=== PATIENT | male | born 1960 | race African-American/Black ===

== ENCOUNTER 2018-05-04 17:05 | Inpatient (IN) | payer OTHER ==
[~2018-05-04] VITALS: Ht 167.6 cm; Wt 101.1 kg
--- NOTE | ~2018-05-04 | 2DMMODE ---
[facility] [address] [employer] (Inspect Manager) [place] [address] 2 D/M-MODE ECHOCARDIOGRAM Name: RON CALI Room #: 208-P ADM IN .R.#: [id number] Admission: 05/04/18 Attend Phys: Shyam Fuller Discharge: Date of : 56 Date of Service: 05/05/18 1352 Report #: [id number] THIS REPORT FOR: //name// APPROVED REPORT Study performed: 05/05/2018 12:57:12 EXAM: Comprehensive 2D, Doppler, and color-flow Echocardiogram Patient Location: Bedside Room #: 208 Status: routine BSA: 1.91 HR: 112 bpm BP: 100/50 mmHg Rhythm: NSR/PACs Other Information Study Quality: Adequate Indications Atrial Fibrillation DM/HTN 2D Dimensions RVDd: 30.64 mm IVSd: 12.24 (7-11mm) LVOT Diam: 23.49 (18-24mm) LVDd: 43.76 mm PWd: 11.72 (7-11mm) Ascending Ao: 30.26 (22-36mm) LVDs: 25.27 (25-40mm) Aortic Root: 30.02 mm IVC: 24.00 mm Volumes Left Atrial Volume (Systole) Single Plane 4CH: 28.67 mL Single Plane 2CH: 35.88 mL LA ESV Index: 18.00 mL/m2 Aortic Valve AoV Peak Garfield.: 1.32 m/s AO Peak Gr.: 7.02 mmHg LVOT Max P.60 mmHg LVOT Max V: 1.28 m/s EDGAR Vmax: 4.20 cm2 Mitral Valve E/A Ratio: 1.3 MV Decel. Time: 180.45 ms [facility] [employer] [place] [address] 2 D/M-MODE ECHOCARDIOGRAM Name: RON CALI Room #: 208-P [facility] IN [facility].#: [id number] Admission: 05/04/18 Attend Phys: Shyam Fuller Discharge: Date of : 56 Date of Service: 05/05/18 1352 Report #: [id number] MV E Max Garfield.: 1.20 m/s MV A Garfield.: 0.93 m/s MV PHT: 52.33 ms IVRT: 62.28 ms Pulmonary Valve PV Peak Garfield.: 1.08 m/s PV Peak Gr.: 4.65 mmHg Tricuspid Valve TR Peak Garfield.: 2.47 m/s RAP Estimate: 15.00 mmHg TR Peak Gr.: 24.40 mmHg PA Pressure: 39.00 mmHg Left Ventricle The left ventricle is normal size. There is normal LV segmental wall motion. Mild concentric left ventricular hypertrophy. Left ventricular systolic function is normal. LVEF is 60-65%. The left ventricular diastolic function is normal. Right Ventricle The right ventricle is normal size. The right ventricular systolic function is normal. Atria The left atrium size is normal. The right atrium size is normal. Aortic Valve The aortic valve is normal in structure. No aortic regurgitation is present. There is no aortic valvular stenosis. Mitral Valve Minimal mitral annular calcification. Trace mitral regurgitation. No evidence of mitral valve stenosis. Tricuspid Valve The tricuspid valve is normal in structure. Trace tricuspid regurgitation. Estimated PAP is 35-40mmHg. Pulmonic Valve The pulmonary valve is normal in structure. Trace pulmonic regurgitation. Great Vessels The aortic root is normal in size. The ascending aorta is normal in size. IVC is dilated and collapses <50% with [facility] [address] [place] [address] 2 D/M-MODE ECHOCARDIOGRAM Name: RON CALI Papo Room #: 208-P [facility] IN .R.#: [id number] Admission: 05/04/18 Attend Phys: Shyam Fuller Discharge: Date of : 56 Date of Service: 05/05/18 1352 Report #: [id number] inspiration. Pericardium There is no pericardial effusion. <Conclusion> Left ventricular systolic function is normal. There is normal LV segmental wall motion. LVEF is 60-65%. The aortic valve is normal in structure. No aortic regurgitation or stenosis Minimal mitral annular calcification. Trace mitral regurgitation. Trace tricuspid regurgitation. Estimated pulmonary artery pressure of 35-40mmHg. There is no pericardial effusion. <ELECTRONICALLY SIGNED> By: Morris Sharif MD, FAC 05/05/18 135 51 51 Morris Sharif MD, FAC /INF
--- NOTE | ~2018-05-04 | PATH ---
[facility] [address] [place] [address] PATHOLOGY RPT PROCEDURE Name: VERONIKA FLEMINGBEATRIS Barros Room #: 213-P DIS IN M.R.#: [id number] Admission: 05/04/18 Date of : 56 Discharge: 05/11/18 Report #: [id number] Path Case #: [id number] [facility] Accession Number: [id number] . 01 Material submitted: . BX OF THICKENED MUCOSA IN RECTUM R/O PROCTITIS . 01 Clinician provided ICD-10: Z85.46 . 01 Clinical history: . Pre-op diagnosis: History of prostate cancer, radiation therapy Postop diagnosis: Thickening of rectum mucosa R/O proctitis . 02 Diagnosis: Large intestinal mucosa, thickened mucosa in rectum rule out proctitis, endoscopic biopsy: - Reactive hyperplastic changes. - Negative for cryptitis or active colitis. - Negative for dysplasia or malignancy. . (IUV:at;05/13/2018) QTA/05/13/2018 . 02 Electronically signed: . Sweta Negrete MD, Pathologist NPI- [id number] . 01 Gross description: . Received in formalin labeled "Deep Fleming, BX of thickened mucosa in rectum, R/O proctitis," are eight segments of padilla soft tissue measuring 0.8 x 0.7 x 0.2 cm in aggregate dimensions and ranging from 0.1 to 0.4 cm in maximum dimension. The specimen is submitted entirely in cassette A1. The smallest fragment may not survive processing. ([facility]; 05/12/2018) XDC/XDC . 02 Pathologist provided ICD-10: K62.9, Z85.46 . 02 CPT . 857603 Specimen Comment: A courtesy copy of this report has been sent to Specimen Comment: [phone], . Specimen Comment: Report sent to / DR MOLINA Performed at: 01 [place] [address] PATHOLOGY RPT PROCEDURE Name: DEEP FLEMING Room #: 213-P DIS IN M.R.#: [id number] Admission: 05/04/18 Date of : 56 Discharge: 05/11/18 Report #: [id number] Path Case #: [id number] [address] [facility] [address], [place], [place] [id number] MD Wallace Hoover MD Phone: [phone] Performed at: [address] [id number] MD Sweta Negrete MD Phone: [phone]
--- NOTE | ~2018-05-04 | HC ---
[facility] [place] [address] CONSULTATION Name: RON CALI Room #: 213-P [facility] IN ..#: [id number] Admission: 05/04/18 Attend Phys: Shyam Baron Discharge: Date of : 56 Report #: [id number] THIS REPORT FOR: //name// CC: NEAL physician/PCP Shyam Martel DATE OF SERVICE: 05/05/2018 HISTORY OF PRESENT ILLNESS: This is a 57-year-old male patient who was evaluated by me for the possibility of stroke. The patient does not believe that he had any stroke-like symptoms. I talked to the nurses looking after this patient. I talked to the patient's mother. It looks like the patient is admitted with constitutional symptoms. He had blood in the urine. He had lost weight. He had back pain and he was admitted with urosepsis. His blood sugar has been running in the 400s-500s. At one time, he was noticed to be ataxic. It was more on the left side as compared to the right side. He has been stable. REVIEW OF SYSTEMS: Extensive in this patient. Relevant review of systems indicate that this patient has diabetes. He has loss of appetite, loss of weight. He has urosepsis. He has a history of prostatic carcinoma. He has a history of hypertension. He also has a history of depression. This was his relevant 14-point review of systems. PAST MEDICAL HISTORY: Positive for prostatic carcinoma. FAMILY HISTORY: Negative for any early age stroke. SOCIAL HISTORY: He has a supportive family. I talked to the mother and we will talk to the patient's . PHYSICAL EXAMINATION: Indicate he is alert, responsive, oriented, able to follow simple and complex commands. His speech, concentration, fund of knowledge and memory is at his baseline. Cranial nerve examination 2-12 looks unremarkable. He does appear to be slightly weak in the left side as compared to the right side. His position sense is intact on both sides. He does [id number]-[id number]-[id number] reasonably well on both sides. There is no meningeal sign. There is no carotid bruit. Presently, his heart rate is running into 160s. He is a very well-developed individual who does not have any dysmorphic features of eyes, ears and face. His vision and hearing looks adequate. His blood pressure is 90/44, respiration is 20, pulse is 160. He did have a CT scan of the head, which does not appear to be showing any acute abnormality. IMPRESSION: This patient may have had encephalopathy secondary to multiple systemic problems. Possibility of cerebellar stroke cannot be excluded. He appears to be stable from neurological perspective, but is having a lot of [address] [address] CONSULTATION Name: JOSE FRANCISCO CALIANTONINO Barros Room #: 213-P ADM IN M.R.#: [id number] Admission: 05/04/18 Attend Phys: Shyam Baron Discharge: Date of : 56 Report #: [id number] systemic problems including high pulse rate. RECOMMENDATIONS: 1. MRI is scheduled and we will see what it shows. 2. I talked to the nurses and told them that they should not take the patient for MRI till he stabilizes and till Cardiology feel comfortable with that. If there is a need for it, I will repeat the CT. Presently, I do not think risk/benefit justify even that because he had a CT yesterday and it was unremarkable. We will look at his MRI when the patient stabilizes, but the patient should go for MRI only if he is stable and when cleared by Cardiology. Thank you very much for this referral and we will follow this patient along with you. <ELECTRONICALLY SIGNED> By: Bert Lund MD 05/11/18 0947 1614 2233 Bert Lund MD /nt
--- NOTE | ~2018-05-04 | EKG ---
[address] [address] ELECTROCARDIOGRAM REPORT Name: RON CALI Room #: 208-P ADM IN M.R.#: [id number] Admission: 05/04/18 Attend Phys: Shyam Baron Discharge: Date of : 56 Report #: [id number] THIS REPORT FOR: //name// [facility] Test Date: 2018-05-05 Test Time: 06:15:15 Pat Name: RON CALI Department: Room: 208 P Gender: M [employer] Superintendent: KRISTINA : 1960 Requested By: Shyam Baron Order Number: [id number] MD: Philip Agee Measurements Intervals Victor Rate: 170 P: UT: QRS: -36 QRSD: 106 T: -17 QT: 280 QTc: 471 Interpretive Statements Incomplete analysis due to missing data in precordial lead(s) Atrial flutter Left axis deviation Low voltage, extremity leads Nonspecific T abnormalities, diffuse leads Baseline wander in lead(s) V6 Missing lead(s): V5 No previous ECG available for comparison Electronically Signed On 05-05-2018 9:56:33 CDT by Philip Agee [email or web address] <ELECTRONICALLY SIGNED> By: Philip Agee MD 05/05/18 0956 4 4 Philip Agee MD /EPI
--- NOTE | ~2018-05-04 | HC ---
[facility] [place] [address] CONSULTATION Name: RON CALI Room #: 239-P [facility] IN .R.#: [id number] Admission: 05/04/18 Attend Phys: Shyam Baron Discharge: Date of : 56 Report #: [id number] THIS REPORT FOR: //name// CC: NELA physician/PCP Shyam Martel DATE OF SERVICE: 05/05/2018 REASON FOR CONSULTATION: Atrial flutter. HISTORY OF PRESENT ILLNESS: The patient is a 57-year-old gentleman with history of prostate cancer with prior radiation therapy, hypertension and diabetes. He now presents with a 2-week history of hematuria. He has had fevers and chills. He was admitted with sepsis syndrome last night. In the middle of the night, he developed atrial flutter with a fast ventricular response. This converted on its own without specific therapy. He denies palpitations. He denies chest heaviness or pressure. No history of near syncope or syncope. There is no prior history of atrial dysrhythmias, myocardial infarction or heart failure. MEDICATIONS: Include simvastatin 20 mg daily, Paxil 10 mg daily, losartan 25 mg daily. PAST MEDICAL HISTORY: Medical records have been reviewed and include a history of prostate cancer, diabetes and hypertension. SOCIAL HISTORY: He works at an [employer]. He is a nonsmoker, nondrinker. FAMILY HISTORY: Unremarkable for premature coronary artery disease. REVIEW OF SYSTEMS: All systems negative except as that noted above. PHYSICAL EXAMINATION: GENERAL: A pleasant gentleman, in no distress. VITAL SIGNS: Blood pressure is 100/50, heart rate of 110 and irregular. He is afebrile, 101.7 degrees, 5 feet 6 inches tall, 179 pounds. HEENT: There are neither xanthelasma, subcutaneous xanthomata, oral mucosal or digital cyanosis or kyphoscoliosis present. CHEST: Clear to auscultation and percussion. CARDIOVASCULAR: Regular rate and rhythm with normal S1, S2. ABDOMEN: Soft and nontender. EXTREMITIES: Without cyanosis, clubbing or edema. Radial pulses are 2+. NEUROLOGIC: He is alert with a nonfocal exam. LABORATORY DATA: Sodium 131, potassium 4.2, creatinine 1.3, glucose 420. [address] [address] CONSULTATION Name: RON CALI Room #: 239-P [facility] IN M.R.#: [id number] Admission: 05/04/18 Attend Phys: Shyam Baron Discharge: Date of : 56 Report #: [id number] Troponin 0. White count 13.8, hemoglobin 12, hematocrit 37, platelet count 232. CT of the abdomen demonstrates a large prostate, bladder wall thickening. EKG, arial flutter with 2:1 AV conduction. IMPRESSION: 1. Sepsis. 2. Paroxysmal atrial flutter. 3. Hematuria; history of prostate cancer with prior radiation. 4. Hypertension. 5. Diabetes. 6. Hypercoagulable. RECOMMENDATIONS: 1. Low dose Cardizem. 2. Echocardiogram with Doppler. 3. Despite an elevated CHADS score, anticoagulant therapy remains contraindicated. 4. Consider anticoagulant therapy for recurrent atrial dysrhythmias. This atrial dysrhythmia has been asymptomatic. <ELECTRONICALLY SIGNED> By: Morris Sharif MD, FACC 05/06/18 0826 0903 0044 Morris Sharif MD, FACC /nt
--- NOTE | ~2018-05-04 | HC ---
[facility] [place] [address] CONSULTATION Name: RON CALI Room #: 239-P [facility] IN ..#: [id number] Admission: 05/04/18 Attend Phys: Shyam Baron Discharge: Date of : 56 Report #: [id number] THIS REPORT FOR: //name// CC: FAM physician/PCP Shyam Martel DATE OF SERVICE: 05/06/2018 ATTENDING PHYSICIAN: Shyam Baron MD. REASON FOR CONSULTATION: Bacteremia. HISTORY OF PRESENT ILLNESS: The patient is a 57-year-old man, admitted through the Emergency Room with history of hematuria, found to have abnormal urinalysis compatible with acute urinary tract infection. The patient is started on broad-spectrum antibiotic coverage consisted of meropenem. Blood cultures report showing Streptococcus species and vancomycin added. The patient mainly complaining of feeling extremely weak, currently not experiencing any difficulty in urination, has no Olguin catheter. He relates having had prostate cancer for which he received radiation therapy. The patient also relates having had fever up to 102 degrees Fahrenheit and weight loss of about 25 pounds and rectal pain and diarrhea. PAST MEDICAL HISTORY: Hypertension. Diabetes mellitus type 2. Prostate cancer for which he received radiation therapy. SOCIAL HISTORY: See H and P, old records. FAMILY HISTORY: See H and P, old records. REVIEW OF SYSTEMS: As above and see H and P. PHYSICAL EXAMINATION: GENERAL: A well-developed, chronically ill-appearing man. VITAL SIGNS: Temperature 101.7 on 05/05/2018. Today's temperature is 99.3, pulse 86, respirations 22, BP 100/65. Height is 5 feet 6 inches, weight 179-196.7 pounds. I suspect different scales were used here. HEENMT: Head normocephalic, atraumatic. Pupils reactive. Mouth: Good oral hygiene, dentition. NECK: Supple, no thyromegaly. LUNGS: Clear to auscultation. HEART: S1, S2. No gallops. ABDOMEN: Soft, no masses or megaly. GENITALIA AND RECTAL: Deferred. EXTREMITIES: No clubbing, cyanosis. There is some swelling of the left hand [facility] [address] [place] [address] CONSULTATION Name: RON CALI Room #: 239-P ADM IN [facility].#: [id number] Admission: 05/04/18 Attend Phys: Shyam Baron Discharge: Date of : 56 Report #: [id number] and left forearm. NEUROLOGIC: Grossly within normal limits. LABORATORY DATA: Sodium 132, potassium 4, BUN 22, creatinine 1, glucose 277, phosphorus 1.8 mg/dL, albumin 1.3 g/dL. On admission, lactic acid is 2.3 millimoles per liter, normalizes thereafter. Protime 14.9 seconds. Fibrinogen 445.8 mg/dL. WBC 15,200, hemoglobin 10.4 g/dL, platelets 163,000. The white blood cell count differential revealed 14% bands. The urinalysis revealed glycosuria, 2+ ketones, 3+ blood. The microscopic exam revealed pyuria, microscopic hematuria as well as bacteriuria. ABGs revealed pH 7.44, pCO2 25, pO2 76, bicarbonate 17.2. Lactate normal. These set of gases is on room air. MICROBIOLOGY DATA: Two out of two blood cultures obtained on 05/04/2018 revealed gram-positive cocci compatible with Streptococcus species. The urine culture is pending. RADIOLOGY EVALUATION: Chest x-ray revealed minor basilar atelectasis, infiltrate and reposition of PICC line now in good position. X-ray of the hand revealed no acute bony abnormalities, soft tissue swelling, question trauma infection. CT scan of the head revealed no abnormality. CT scan of abdomen and pelvis revealed findings compatible with prostate cancer and marked prostate prominence, bladder wall thickening, possibly secondary to outlet obstruction and stranding of fat adjacent to the rectum and distal colon could represent proctitis or colitis. MEDICATIONS: The patient is currently on treatment with vancomycin 1250 mg IV every 12 hours. This was entered today, meropenem 1 gram IV every 8 hours. He is also on paroxetine, diltiazem, amiodarone, tamsulosin, insulin lispro per sliding scale, diltiazem drip, p.r.n. glucose and glucagon, regular insulin per sliding scale, pressors per protocol. ASSESSMENT: 1. Acute urinary tract infection, possible prostatitis and presence of bladder cancer with evidence of bacteremia with Streptococcus species entertained Enterococcus faecalis bacteremia. 2. Sepsis, improving. 3. Hypertension. 4. Diabetes mellitus. 5. Protein calorie malnutrition. SUGGESTIONS: Recommend continue treatment with vancomycin at current dose, monitor vancomycin trough to be maintained between 10 and 20 mcg/mL. Possibly discontinue meropenem shortly. [facility] [address] [place] [address] CONSULTATION Name: RON CALI Room #: 239-P ADM IN M.R.#: [id number] Admission: 05/04/18 Attend Phys: Shyam Baron Discharge: Date of : 56 Report #: [id number] Baron, thank you for requesting my suggestions. <ELECTRONICALLY SIGNED> By: Darrius Agee MD 05/07/18 0922 0914 193 Darrius Agee MD /nt
--- NOTE | ~2018-05-04 | EEG ---
[facility] [place] [address] ELECTROENCEPHALOGRAM Name: RON CALI Room #: 213-P ADM IN M.R.#: [id number] Admission: 05/04/18 Attend Phys: Shyam Landis Discharge: Date of : 56 Report #: [id number] THIS REPORT FOR: //name// CC: NEAL physician/PCP Shyam Sainiew Delonte DATE OF SERVICE: 05/06/2018 This patient is being evaluated for altered mental status. EEG was done by placing the electrode by standard 10/20 system of electrode placement. Both referential and sequential montages were used for recording. Background activity in this patient's EEG is about 9-10 Hz and 30 microvolt. This is a symmetrical activity. Photic stimulation was unremarkable. The patient went to sleep that is associated with bilaterally symmetrical sleep spindle and vertex sharp waves. Throughout the record, no active epileptiform activity was noticed. IMPRESSION: This electroencephalogram is unremarkable. It is intermixed with some theta range slowing. That is a nonspecific abnormality, which can occur with encephalopathy, effect of psychotropic medication, drowsiness, etc. Otherwise, the EEG was unremarkable. <ELECTRONICALLY SIGNED> By: Bert Lund MD 05/11/18 0948 1841 1849 Bert Lund MD /nt
--- NOTE | ~2018-05-04 | P ---
[facility] [place] [address] PROCEDURE REPORT Name: RON CALI Room #: 213-P [facility] IN M.R.#: [id number] Admission: 05/04/18 Attend Phys: Shyam Baron Discharge: 05/11/18 Date of : 56 Report #: [id number] THIS REPORT FOR: //name// CC: NEAL physician/PCP Shyam Martel BRIEF HISTORY: The patient is a 57-year-old male with a history of prostate cancer and previous radiation therapy. Recent CT showed thickening of the rectum and sigmoid colon, mass exclusion could not be excluded. PREOPERATIVE DIAGNOSES: Abnormal CT rectum and sigmoid. POSTOPERATIVE DIAGNOSIS: Thickened mucosa, rectum. MEDICATIONS: Deep sedation with propofol per anesthesia. SPECIMEN: Biopsies of thickened rectum. ESTIMATED BLOOD LOSS: 3 mL. PROCEDURE: Flexible sigmoidoscopy to descending colon with biopsy. FINDINGS: Prior to propofol sedation, procedure of flexible sigmoidoscopy was discussed with the patient as well as potential risks and its complications. He indicates he understands and desire that we proceed. DESCRIPTION OF PROCEDURE: With the patient in left lateral decubitus position, digital examination was completed and a hard indurated prostate was palpable. No mass lesions were noted. Subsequently, the Olympus video colonoscope was introduced in the rectum, advanced under direct vision to the descending colon. This was about 50 cm. At that point, the scope was slowly withdrawn and careful circumferential views obtained. As we withdrew the scope, the prep was somewhat limited. There were pieces of solid stool around, as well as we could see the mucosa, was within normal limits, normal vascular pattern, normal light reflex. No mucosal abnormalities were noted until the distal rectum was reached at which point there was moderate thickening of some of the folds in the rectum. No blood was seen. No ulcerations were seen. I was unable to retroflex the scope in the rectum. Multiple biopsies were obtained. Scope was withdrawn and the patient tolerated the procedure well. DISPOSITION: The patient with prostate cancer and abnormal thickening of colon on CT and old thickening of rectum on CT. We will follow up on biopsies [address] [address] PROCEDURE REPORT Name: RON CALI Room #: 213-P DIS IN M.R.#: [id number] Admission: 05/04/18 Attend Phys: Shyam Baron Discharge: 05/11/18 Date of : 56 Report #: [id number] obtained today. Changes may be result of radiation therapy. No neoplastic disease was seen. <ELECTRONICALLY SIGNED> By: Darryl Tejeda MD 05/12/18 1158 1243 0015 Darryl Tejeda MD /nt
--- NOTE | ~2018-05-04 | HC ---
[facility] [place] [address] CONSULTATION Name: RON CALI Room #: 213-P [facility] IN M.R.#: [id number] Admission: 05/04/18 Attend Phys: Shyam Baron Discharge: Date of : 56 Report #: [id number] THIS REPORT FOR: //name// CC: NEAL physician/PCP Shyam Martel DATE OF SERVICE: 05/05/2018 Pulmonary Consultation REFERRAL PHYSICIAN: Dr. Smith. REASON FOR REFERRAL: Sepsis. HISTORY OF PRESENT ILLNESS: The patient is a 57-year-old -[place] male, who presents to the emergency room on 05/04 with intermittent complaints of hematuria for the past 2 weeks. He complains of weakness, poor appetite, febrile illness, weight loss of approximately 25 pounds for the last couple of months, rectal pain, and diarrhea for the past 2 weeks. He complains of back pain. He is felt to have urinary tract infection along with sepsis. The day following admission, the patient started to develop tachycardia, borderline hypotension. He was transferred to ICU. A pulmonary critical care consultation was requested. Currently, the patient is awake, denies any dyspnea, chest pain. He appears mildly distressed, mildly tachypneic. 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 PAST SURGICAL HISTORY: Unremarkable. ALLERGIES: None to medications. HOME MEDICATIONS: List includes indomethacin, Zocor, Paxil, Cozaar, vitamin C, multivitamins. FAMILY HISTORY: Noncontributory. SOCIAL HISTORY: The patient is a lifetime nonsmoker. Denies alcohol use. REVIEW OF SYSTEMS: As mentioned above, otherwise 10-point system is negative. PHYSICAL EXAMINATION: [facility] [address] [place] [address] CONSULTATION Name: JOSE [facility] CALIANTONINO Barros Room #: 213-P [facility] [place] IN M.R.#: [id number] Admission: 05/04/18 Attend Phys: Shyam Baron Discharge: Date of : 56 Report #: [id number] GENERAL: He is awake, alert, in mild distress. Also appears mildly dyspneic. VITAL SIGNS: Temperature is 102 degrees Fahrenheit, pulse is 149, respiratory rate is 30, saturation is 96%, blood pressure 120/64 mmHg and had been as low as 80 mmHg systolic. HEENT: Normocephalic, atraumatic. NECK: Supple, without lymphadenopathy or thyromegaly. CHEST: Breath sounds are fair due to poor effort. No obvious rales or wheezes. CARDIOVASCULAR: Normal S1, S2. There are no murmurs or gallop. There is no JVD. There is no carotid bruit. Pulses are 2+/4+ bilaterally. ABDOMEN: Soft, mildly tender, no masses felt. No rebound tenderness. GENITOURINARY: Deferred. RECTAL: Deferred. EXTREMITIES: There is no edema, cyanosis or clubbing. DATA: CT abdomen and pelvis showed marked prostate prominence, bladder wall thickening, secondary to possible outlet obstruction, fatty liver, pancreatic calcifications with chronic pancreatitis. UA was notable for moderate bacteria. CT head was unremarkable. Echocardiogram was grossly unremarkable. Procalcitonin level is 11.6. PSA 0.4. Electrolytes: Sodium 132, potassium 3.4, chloride 104, CO2 17, BUN is 22, creatinine is 1.0. WBC 95690, hemoglobin 10.4, and platelets are normal. There is significant bandemia noted. Arterial blood gas revealed pH 7.44, pCO2 25, pO2 76 on room air. Blood culture was positive for Gram-positive cocci. ASSESSMENT: 1. Severe sepsis with hypotension, tachycardia. 2. Urinary tract infection. 3. Gram-positive bacteremia. 4. Bladder wall thickening as per CT abdomen. 5. Atrial fibrillation with rapid ventricular response. 6. Hyponatremia, hyperkalemia. 7. Hypertension. 8. Diabetes mellitus type 2. 9. History of prostate cancer and enlarged prostate as mentioned above. 10. Encephalopathy, likely due to toxic and metabolic. RECOMMENDATION: Agree with sepsis protocol, broad spectrum antibiotics, maintain mean systolic arterial pressure around 60 and maintain adequate urine output, correct electrolyte abnormalities. DVT and GI prophylaxis is recommended. We will continue to monitor closely with you in the ICU. <ELECTRONICALLY SIGNED> By: He Hooker MD 05/07/181932 [id number] He Hooker MD /nt
--- NOTE | ~2018-05-04 | EKG ---
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
--- NOTE | ~2018-05-04 | EKG ---
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1960 Requested By: Shyam Baron Order Number: [id number] MD: Philip Agee Measurements Intervals [place] Rate: 99 P: 68 ID: [id number] QRS: 17 QRSD: 86 T: 56 QT: 365 QTc: 469 Interpretive Statements Sinus rhythm Supraventricular bigeminy Low voltage, extremity leads RSR' in V1 or V2, probably normal variant Compared to ECG 05/05/2018 06:15:15 Atrial premature complex(es) now present RSR' in V1 or V2 now present Atrial flutter no longer present Left-axis deviation no longer present T-wave abnormality no longer present Electronically Signed On 05-06-2018 7:20:26 CDT by Philip Agee [email or web address] <ELECTRONICALLY SIGNED> By: Philip Agee MD 05/06/18719 6 6 Philip Agee MD /EPI
[2018-05-04 17:21] VITALS: BP 108/52
[2018-05-04] MEDS ORDERED: INDOMETHACIN 5050 M1 PO (19:24)
[2018-05-04] MEDS ORDERED: PAXIL10 MG PO (19:25)
[2018-05-04] MEDS ORDERED: ZOCOR20 MG PO (19:25)
[2018-05-04] MEDS ORDERED: COZAAR 25 MG TA25 M1 PO (19:26)
[2018-05-04] MEDS ORDERED: VITAMINC500 PO (19:27)
[2018-05-04] MEDS ORDERED: CINNAMON500 MG PO (19:27)
[2018-05-04] MEDS ORDERED: CENTRUM SILVER1 EAC4 PO (19:28)
[2018-05-04 20:26] LABS: URINE BLOOD 3+ (Negative); URINE CLARITY CLEAR; URINE COLOR YELLOW; URINE GLUCOSE-RANDOM* 3+ (Negative); URINE KETONES 2+ (Negative); URINE NITRITE-REFLEX NEGATIVE (Negative); URINE PROTEIN (DIPSTICK) NEGATIVE (Negative)
[2018-05-04 20:28] LABS: URINE LEUKOCYTES-REFLEX 1+ (Negative)
[2018-05-04 20:29] LABS: ICTOTEST (BILI CONFIRMATORY) Negative (Negative); URINE BILIRUBIN NEGATIVE (Negative)
[2018-05-04 20:36] LABS: CASTS None Seen /LPF (None Seen); CRYSTALS None Seen /LPF (None Seen); MUCUS 0-3 Light strn/LPF (None Seen); SQUAMOUS 0-3 Few /LPF (0-3); URINE RBC 3-10 Few /HPF (0-2); URINE WBC-REFLEX >25 Many /HPF (0-5)
[2018-05-04 20:37] LABS: WBC CLUMPS Rare (None Seen)
[2018-05-04 21:17] LABS: HEMATOCRIT 39.8 % (42.0-52.0); HEMOGLOBIN 12.9 gm/dL (14.0-18.0); MCH 29.8 pg (26.0-34.0); MCHC 32.3 g/dL (28.0-37.0); MCV 92.5 fL (80.0-100.0); PLATELET COUNT 237 thou/uL (150-400); RBC 4.31 mil/uL (4.50-6.00); RDW 15.1 % (10.5-14.5); WBC 18.8 thou/uL (4.0-11.0)
[2018-05-04 21:26] LABS: CALCIUM 9.2 mg/dL (8.5-10.1); CREATININE 1.3 mg/dL (0.7-1.3)
[2018-05-04 21:31] LABS: POTASSIUM 6.2 mmol/L (3.5-5.1)
[2018-05-04 21:41] LABS: ANISOCYTOSIS 1+
[2018-05-04 22:17] LABS: BE(vivo) -9.7 mmol/L (-2 to +3); PCO2 VENOUS 25.3 mmHg (41.0-51.0); PO2 VENOUS 67.7 mmHg (35.0-45.0)
[2018-05-04 23:40] VITALS: BP 93/48
[2018-05-05] VITALS (16 sets, daily range): BP systolic 64–112; BP diastolic 43–62
[2018-05-05 04:47] LABS: CALCIUM 8.8 mg/dL (8.5-10.1); CREATININE 1.3 mg/dL (0.7-1.3); HEMATOCRIT 37.1 % (42.0-52.0); HEMOGLOBIN 12.3 gm/dL (14.0-18.0); MCH 30.2 pg (26.0-34.0); MCV 91.5 fL (80.0-100.0); RBC 4.06 mil/uL (4.50-6.00); RDW 14.9 % (10.5-14.5); WBC 13.8 thou/uL (4.0-11.0)
[2018-05-05 04:48] LABS: POTASSIUM 4.2 mmol/L (3.5-5.1)
[2018-05-05 19:55] LABS: BE(vivo) -5.4 mmol/L (-2 to +3); HCO3 17.2 mmol/L (22.0-26.0); PCO2 25.8 mmHg (35.0-45.0); PO2 76.9 mmHg (80.0-100.0); pH 7.443 (7.360-7.450); sO2 96.1 % (92.0-98.0)
[2018-05-05 20:07] LABS: CREATININE 0.9 mg/dL (0.7-1.3)
[2018-05-05 20:11] LABS: CALCIUM 6.1 mg/dL (8.5-10.1); POTASSIUM 2.7 mmol/L (3.5-5.1)
[2018-05-06] VITALS (20 sets, daily range): BP systolic 90–121; BP diastolic 48–76
[2018-05-06 00:36] LABS: HEMATOCRIT 26.7 % (42.0-52.0); MCH 30.1 pg (26.0-34.0); MCHC 33.5 g/dL (28.0-37.0); MCV 89.6 fL (80.0-100.0); PLATELET COUNT 129 thou/uL (150-400); RBC 2.98 mil/uL (4.50-6.00); RDW 14.5 % (10.5-14.5); WBC 14.7 thou/uL (4.0-11.0)
[2018-05-06 01:03] LABS: ABSOLUTE NEUTROPHILS 13.7 thou/uL (1.4-8.2); METAMYELOCYTES 2 %
[2018-05-06 01:51] LABS: CALCIUM 7.2 mg/dL (8.5-10.1); POTASSIUM 3.4 mmol/L (3.5-5.1)
[2018-05-06 08:19] LABS: HEMATOCRIT 30.8 % (42.0-52.0); HEMOGLOBIN 10.4 gm/dL (14.0-18.0); MCH 30.1 pg (26.0-34.0); MCHC 33.7 g/dL (28.0-37.0); MCV 89.6 fL (80.0-100.0); RBC 3.44 mil/uL (4.50-6.00); RDW 14.6 % (10.5-14.5); WBC 15.2 thou/uL (4.0-11.0)
[2018-05-06 08:38] LABS: ALBUMIN 1.3 g/dL (3.4-5.0); FIBRINOGEN 445.8 mg/dL (210-360); INR 1.5; PHOSPHORUS 1.8 mg/dL (2.5-4.9)
[2018-05-06 08:42] LABS: PROTIME 14.9 Seconds (9.3-11.4)
[2018-05-06 08:43] LABS: APTT 36.9 Seconds (24.5-32.8)
[2018-05-07] VITALS (19 sets, daily range): BP systolic 91–135; BP diastolic 42–65
[2018-05-07 03:59] LABS: HEMATOCRIT 31.1 % (42.0-52.0); HEMOGLOBIN 10.3 gm/dL (14.0-18.0); MCH 29.4 pg (26.0-34.0); MCHC 33.3 g/dL (28.0-37.0); MCV 88.4 fL (80.0-100.0); PLATELET COUNT 150 thou/uL (150-400); RBC 3.52 mil/uL (4.50-6.00); RDW 14.4 % (10.5-14.5); WBC 13.5 thou/uL (4.0-11.0)
[2018-05-07 04:16] LABS: ALBUMIN 1.2 g/dL (3.4-5.0); CALCIUM 7.7 mg/dL (8.5-10.1); POTASSIUM 3.9 mmol/L (3.5-5.1); TOTAL BILIRUBIN 0.5 mg/dL (<0.1-1.0); TOTAL PROTEIN 5.3 g/dL (6.4-8.2)
[2018-05-07 04:52] LABS: ABSOLUTE NEUTROPHILS 11.9 thou/uL (1.4-8.2)
[2018-05-08] VITALS (8 sets, daily range): BP systolic 107–130; BP diastolic 54–74
[2018-05-08 05:34] LABS: HEMATOCRIT 28.9 % (42.0-52.0); HEMOGLOBIN 9.9 gm/dL (14.0-18.0); MCH 30.1 pg (26.0-34.0); MCHC 34.2 g/dL (28.0-37.0); PLATELET COUNT 171 thou/uL (150-400); RBC 3.29 mil/uL (4.50-6.00); RDW 14.5 % (10.5-14.5); WBC 12.3 thou/uL (4.0-11.0)
[2018-05-08 05:47] LABS: ALBUMIN 1.2 g/dL (3.4-5.0); CALCIUM 7.9 mg/dL (8.5-10.1); CREATININE 0.9 mg/dL (0.7-1.3); PHOSPHORUS 2.1 mg/dL (2.5-4.9); POTASSIUM 4.1 mmol/L (3.5-5.1)
[2018-05-08 08:28] LABS: ABSOLUTE NEUTROPHILS 10.6 thou/uL (1.4-8.2)
[2018-05-08 08:29] LABS: ATYPICAL LYMPHS 3 %
[2018-05-08 08:30] LABS: ANISOCYTOSIS SLIGHT
[2018-05-08 12:36] LABS: TSH 0.531 uIU/mL (0.358-3.740)
[2018-05-09] VITALS (12 sets, daily range): BP systolic 83–130; BP diastolic 43–70
[2018-05-09 09:31] LABS: HEMATOCRIT 30.7 % (42.0-52.0); HEMOGLOBIN 10.3 gm/dL (14.0-18.0); MCH 29.5 pg (26.0-34.0); MCHC 33.5 g/dL (28.0-37.0); MCV 88.3 fL (80.0-100.0); RBC 3.47 mil/uL (4.50-6.00); RDW 14.2 % (10.5-14.5); WBC 12.1 thou/uL (4.0-11.0)
[2018-05-10 03:15] VITALS: BP 110/60
[2018-05-10 04:26] LABS: INR 1.2; PROTIME 11.9 Seconds (9.3-11.4)
[2018-05-10 04:30] LABS: ALBUMIN 1.2 g/dL (3.4-5.0); CALCIUM 8.4 mg/dL (8.5-10.1); CREATININE 0.9 mg/dL (0.7-1.3); PHOSPHORUS 3.8 mg/dL (2.5-4.9); POTASSIUM 4.1 mmol/L (3.5-5.1)
[2018-05-10 07:28] VITALS: BP 115/66
[2018-05-10] MEDS ORDERED: PACERONE 200 M200 M1 PO (08:19)
[2018-05-10] MEDS ORDERED: FLOMAX0.4 MG PO (08:19)
[2018-05-10] MEDS ORDERED: LOPRESSOR25 PO (08:19)
[2018-05-10] MEDS ORDERED: CARDIZEM CD240 MG PO (08:19)
[2018-05-10] MEDS ORDERED: COUMADIN 5 MG TA5 M1 PO (08:19)
[2018-05-10 11:40] VITALS: BP 102/52
[2018-05-10 15:17] VITALS: BP 111/56
[2018-05-10 21:09] VITALS: BP 129/70
[2018-05-11 04:31] VITALS: BP 150/61
[2018-05-11 07:25] VITALS: BP 145/59
[2018-05-11 14:25] VITALS: BP 141/69
[2018-05-11 19:45] VITALS: BP 116/51
== END 2018-05-11 20:45 | disposition short-term general hospital (02) | DRG 871 ==
LOC: ER 17:05 → ICU 23:20 → EROBS 23:20 → 2N 23:20 → ICU 05-05 16:23 → 2N 05-07 16:45
PROVIDERS: Hospitalist; Internal Medicine Pulmonary Disease; Nurse Practitioner Acute Care; Nurse Practitioner Family; Physician Assistant; Psychiatry & Neurology Neurology
PROC: 02HV33Z Insertion of Infusion Device into Superior Vena Cava, Percutaneous Approach (ICD-10-PCS; principal; 2018-05-06)
PROC: 0DBP8ZX Excision of Rectum, Via Natural or Artificial Opening Endoscopic, Diagnostic (ICD-10-PCS; 2018-05-11)
DX: A40.1 Sepsis due to streptococcus, group B (principal); G92 Toxic encephalopathy; I63.40 Cerebral infarction due to embolism of unspecified cerebral artery; E43 Unspecified severe protein-calorie malnutrition; E87.1 Hypo-osmolality and hyponatremia; I48.92 Unspecified atrial flutter; D68.59 Other primary thrombophilia; K86.1 Other chronic pancreatitis; N10 Acute pyelonephritis; E46 Unspecified protein-calorie malnutrition; N39.0 Urinary tract infection, site not specified; E83.42 Hypomagnesemia; M79.89 Other specified soft tissue disorders; E87.6 Hypokalemia; E11.65 Type 2 diabetes mellitus with hyperglycemia; R33.9 Retention of urine, unspecified; E87.5 Hyperkalemia; R31.9 Hematuria, unspecified; I10 Essential (primary) hypertension; R65.20 Severe sepsis without septic shock; I48.91 Unspecified atrial fibrillation; M47.896 Other spondylosis, lumbar region; E78.5 Hyperlipidemia, unspecified; C61 Malignant neoplasm of prostate; Z79.899 Other long term (current) drug therapy; Z92.3 Personal history of irradiation; Z85.51 Personal history of malignant neoplasm of bladder; Z68.36 Body mass index [BMI] 36.0-36.9, adult
CPT/HCPCS: 10078; 10081; 27000; 62110; 62900; 70005

== ENCOUNTER → 2018-07-13 | Outpatient (CLI) | payer OTHER ==
[~2018-07-13] MED LIST: CARDIZEM CD240 MG PO; CENTRUM SILVER1 EAC4 PO; CINNAMON500 MG PO; COUMADIN 5 MG TA5 M1 PO; COZAAR 25 MG TA25 M1 PO; FLOMAX0.4 MG PO; INDOMETHACIN 5050 M1 PO; LOPRESSOR25 PO; PACERONE 200 M200 M1 PO; PAXIL10 MG PO; VITAMINC500 PO; ZOCOR20 MG PO
== END ==
LOC: EDSTATUS 05-11 16:24 → HYPER 07-08 14:34
DX: E11.622 Type 2 diabetes mellitus with other skin ulcer (principal); L89.150 Pressure ulcer of sacral region, unstageable; L98.491 Non-pressure chronic ulcer of skin of other sites limited to breakdown of skin; L84 Corns and callosities; E11.39 Type 2 diabetes mellitus with other diabetic ophthalmic complication; H40.9 Unspecified glaucoma; E11.65 Type 2 diabetes mellitus with hyperglycemia; E78.49 Other hyperlipidemia; C61 Malignant neoplasm of prostate; G82.50 Quadriplegia, unspecified; Z79.84 Long term (current) use of oral hypoglycemic drugs; Z79.4 Long term (current) use of insulin; Z79.01 Long term (current) use of anticoagulants; Z85.46 Personal history of malignant neoplasm of prostate

== ENCOUNTER → 2018-07-23 | Outpatient (CLI) | payer OTHER | LOC: HYPER 07:05 | DX: E11.622 Type 2 diabetes mellitus with other skin ulcer (principal); L89.154 Pressure ulcer of sacral region, stage 4; L98.491 Non-pressure chronic ulcer of skin of other sites limited to breakdown of skin; L89.109 Pressure ulcer of unspecified part of back, unspecified stage; L98.421 Non-pressure chronic ulcer of back limited to breakdown of skin; L84 Corns and callosities; E11.65 Type 2 diabetes mellitus with hyperglycemia; E11.39 Type 2 diabetes mellitus with other diabetic ophthalmic complication; H40.9 Unspecified glaucoma; E78.49 Other hyperlipidemia; C61 Malignant neoplasm of prostate; G82.50 Quadriplegia, unspecified; I10 Essential (primary) hypertension; Z86.73 Personal history of transient ischemic attack (TIA), and cerebral infarction without residual deficits; Z79.4 Long term (current) use of insulin; Z79.84 Long term (current) use of oral hypoglycemic drugs; Z79.01 Long term (current) use of anticoagulants ==

== ENCOUNTER → 2018-10-05 | Outpatient (CLI) | payer OTHER | LOC: HYPER 07:04 | DX: E11.622 Type 2 diabetes mellitus with other skin ulcer (principal); L89.154 Pressure ulcer of sacral region, stage 4; L89.102 Pressure ulcer of unspecified part of back, stage 2; L98.492 Non-pressure chronic ulcer of skin of other sites with fat layer exposed; L98.421 Non-pressure chronic ulcer of back limited to breakdown of skin; L84 Corns and callosities; C61 Malignant neoplasm of prostate; E11.39 Type 2 diabetes mellitus with other diabetic ophthalmic complication; H40.9 Unspecified glaucoma; E11.65 Type 2 diabetes mellitus with hyperglycemia; E78.49 Other hyperlipidemia; G82.50 Quadriplegia, unspecified; I10 Essential (primary) hypertension; Z79.84 Long term (current) use of oral hypoglycemic drugs; Z79.4 Long term (current) use of insulin; Z79.01 Long term (current) use of anticoagulants ==